=== PATIENT | male | born 1965 | race Caucasian/White ===

== ENCOUNTER 2021-07-31 10:54 | Emergency (ER) | payer OTHER ==
--- NOTE | 2021-07-31 11:44 | EDM.PDOC ---
ED HPI GENERAL MEDICAL PROBLEM - General Chief Complaint: Respiratory Problem Stated Complaint: COVID +/SOB/COUGH Time Seen by Provider: 07/31/21 11:07 Source of Information: Reports: Patient History Limitations: Reports: No Limitations - History of Present Illness INITIAL COMMENTS - FREE TEXT/NARRATIVE: 55-year-old male presents the emergency department traveling from [place] to [place]. States he was diagnosed with Covid on July 20, 2021 however he had symptoms 2 days prior to this. He states he was doing pretty well managing the Covid symptoms of fever, chills, body aches and fatigue. He states most of that has resolved however he is still having some shortness of breath. He states that he stopped at an emergency room somewhere in [place] as he felt more short of breath. He states that an x-ray was completed and this was unremarkable. He was then given an albuterol inhaler and he continued traveling. He states he has a inhaler does seem to help. During his trip this morning, he started to feel slightly more short of breath and states he had a pulse oximeter and it read in the upper 80s. He then states he became dizzy and elected to stop in the emergency department this morning. O2 saturations in the emergency department at the time of triage are 88% on room air. He is afebrile. He states he is otherwise healthy. He does not smoke. He is not on any prescription medications. And he states he exercises regularly. - Related Data Allergies Allergy/AdvReac Type Severity Reaction Status Date / Time No Known Allergies Allergy Verified 07/31/21 11:13 Home Meds: Home Meds . [No Known Home Meds] 07/31/21 [History] Past Medical History - Past Health History Medical/Surgical History: Denies Medical/Surgical History - Infectious Disease History Infectious Disease History: Reports: Novel Coronavirus Social & Family History - Tobacco Use Tobacco Use Status *Q: Never Tobacco User Second Hand Smoke Exposure: No - Recreational Drug Use Recreational Drug Use: No ED ROS GENERAL - Review of Systems Review Of Systems: Comprehensive ROS is negative, except as noted in HPI. ED EXAM, GENERAL - Physical Exam Exam: See Below Exam Limited By: No Limitations General Appearance: Alert, WD/WN, No Apparent Distress Ears: Normal External Exam, Hearing Grossly Normal Nose: Normal Inspection Throat/Mouth: Normal Inspection, Normal Lips, Normal Voice, No Airway Compromise Head: Atraumatic Neck: Normal Inspection, Supple Respiratory/Chest: No Respiratory Distress, Lungs Clear, Normal Breath Sounds, No Accessory Muscle Use, Chest Non-Tender Cardiovascular: Normal Peripheral Pulses, Regular Rate, Rhythm, No Murmur GI/Abdominal: Normal Bowel Sounds, Soft, Non-Tender, No Distention (Male) Exam: Deferred Rectal (Males) Exam: Deferred Back Exam: Normal Inspection Extremities: Normal Inspection Neurological: Alert, Oriented, Normal Cognition Psychiatric: Normal Affect, Normal Mood Skin Exam: Warm, Dry, Intact, Normal Color, No Rash Lymphatic: No Adenopathy Course - Vital Signs Text/Narrative:: As stated above, patient diagnosed with Covid on the of this month. Had progressively worsening shortness of breath while traveling through [place] and pulse oximeter read in the upper 80s and at that time states he became lightheaded. Upon my assessment, the patient is hemodynamically stable. While I was at the bedside interviewing the patient his O2 saturations were 99 to 100%. Patient does have some fine crackles noted to the bilateral bases as well as the right middle lobe otherwise assessment is unremarkable. He does have a spontaneous cough while taking a deep breath but he does not appear dyspneic at rest. Will obtain a portable chest x-ray as well as have respiratory therapy give the patient an incentive spirometer. Last Recorded V/S: Last Vital Signs Temp 97.8 F 07/31/21 11:08 Pulse 57 L 07/31/21 11:08 Resp 16 07/31/21 11:08 BP 112/87 07/31/21 11:08 Pulse Ox 98 07/31/21 11:08 - Orders/Labs/Meds Orders: Active Orders 24 hr Category Date Time Status RT Incentive Spirometry [RC] ASDIRECTED Care 07/31/21 11:27 Active Chest 1V Frontal [CR] Stat Exams 07/31/21 11:35 Taken - Re-Assessments/Exams Free Text/Narrative Re-Assessment/Exam: 07/31/21 12:12 Portable view of the chest was reviewed by myself and Dr. Stevens and nothing acute is appreciated. Patient will be discharged from the emergency department. He has been educated on the use of incentive spirometry. Departure - Departure Time of Disposition: 12:14 Disposition: Home, Self-Care 01 Condition: Good Clinical Impression: COVID-19 - Discharge Information Referrals: PCP,Not In Area [Primary Care Provider] - Forms: ED Department Discharge Additional Instructions: You were seen in the emergency department with low oxygen levels per your pulse oximetry reading. Chest x-ray was completed in the emergency department which did not show any pneumonia. Oxygen saturations while in the emergency department were in the upper 90s. You were given an incentive spirometer while here and instructed on the use. Continue using your albuterol inhaler as prescribed. You are through the worst part of Covid and likely will start to feel better over the next week or so. Follow-up with your primary care provider as needed. Sepsis Event Note (ED) - Evaluation Sepsis Screening Result: No Definite Risk - Focused Exam Vital Signs: Vital Signs Temp Pulse Resp BP Pulse Ox 07/31/21 11:08 97.8 F 57 L 16 112/87 98 - My Orders Last 24 Hours: My Active Orders 07/31/21 11:27 RT Incentive Spirometry [RC] ASDIRECTED 07/31/21 11:35 Chest 1V Frontal [CR] Stat - Assessment/Plan Last 24 Hours: My Active Orders 07/31/21 11:27 RT Incentive Spirometry [RC] ASDIRECTED 07/31/21 11:35 Chest 1V Frontal [CR] Stat
--- NOTE | 2021-07-31 15:43 | CR ---
Chest: Portable view of the chest was obtained. Comparison: No prior chest imaging is available. Slight parenchymal densities are seen within the periphery of the right mid and lower chest. Left lung is clear. Heart size is normal. Tortuous thoracic aorta is seen. Bony structures show nothing acute. Impression: 1. Findings suspicious for minimal Covid pneumonia within the periphery of the right mid and lower chest. Diagnostic code #3
== END 2021-07-31 12:26 | disposition home or self-care (01) ==
LOC: JD.ED 10:54
DX: U07.1 COVID-19 (principal)
CPT/HCPCS: 71045; 71045-26; 99282; 99283-25